=== PATIENT | female | born 1945 | race Caucasian/White ===

== ENCOUNTER 2017-01-26 07:00 | Inpatient (IN) | payer MEDICARE ==
[~2017-01-26] VITALS: Ht 168 cm; Wt 101.0 kg
[2017-01-27 06:14] LABS: HCT 29.8 % (37.0-47.0); MCH 31.4 pg (25.0-31.0); MCHC 33.6 g/dL (32.0-36.0); MCV 93.7 fL (78.0-100.0); MPV 10.9 fL (6.0-9.5); RBC 3.18 M/uL (4.20-5.40); RDW 13.3 % (11.5-14.0); WBC 5.2 K/uL (4.0-10.5)
[2017-01-27 06:44] LABS: CREATININE 0.8 mg/dL (0.5-1.0); MAGNESIUM 1.51 mg/dL (1.40-2.10); POTASSIUM 3.7 mmol/L (3.5-5.1)
[2017-01-28 05:52] LABS: HCT 30.3 % (37.0-47.0); HGB 9.9 g/dl (12.5-16.0); MCH 31.1 pg (25.0-31.0); MCHC 32.7 g/dL (32.0-36.0); MCV 95.3 fL (78.0-100.0); MPV 11.4 fL (6.0-9.5); RBC 3.18 M/uL (4.20-5.40); RDW 13.6 % (11.5-14.0); WBC 4.8 K/uL (4.0-10.5)
[2017-01-28 06:20] LABS: CREATININE 0.8 mg/dL (0.5-1.0); MAGNESIUM 1.63 mg/dL (1.40-2.10); PHOSPHORUS 3.1 mg/dL (2.7-4.5); POTASSIUM 3.8 mmol/L (3.5-5.1)
[2017-01-29 06:16] LABS: HCT 29.7 % (37.0-47.0); HGB 9.6 g/dl (12.5-16.0); MCH 31.4 pg (25.0-31.0); MCHC 32.3 g/dL (32.0-36.0); MCV 97.1 fL (78.0-100.0); MPV 11.4 fL (6.0-9.5); RBC 3.06 M/uL (4.20-5.40); RDW 13.7 % (11.5-14.0)
[2017-01-29 06:47] LABS: CREATININE 0.9 mg/dL (0.5-1.0); MAGNESIUM 1.57 mg/dL (1.40-2.10); PHOSPHORUS 3.1 mg/dL (2.7-4.5); POTASSIUM 3.6 mmol/L (3.5-5.1)
[2017-01-29] MEDS ORDERED: PERCOCET 5/3251 TAB PO (13:44)
[2017-01-29] MEDS ORDERED: SERTRALINE HCL100 MG PO (13:44)
[2017-01-29] MEDS ORDERED: LIPITOR20 MG PO (13:45)
[2017-01-29] MEDS ORDERED: ATENOLOL25 MG PO (13:45)
[2017-01-29] MEDS ORDERED: COSOPT EYE DROP10 ML OU (13:48)
[2017-01-29] MEDS ORDERED: PROTONIX 40MG T40 MG PO (13:48)
[2017-01-29] MEDS ORDERED: SYNTHROID100 MCG PO (13:48)
[2017-01-29] MEDS ORDERED: XARELTO10 MG PO (13:54)
[2017-01-29] MEDS ORDERED: NORVASC10 MG PO (13:55)
[2017-01-29] MEDS ORDERED: ZOFRAN4 MG PO (13:55)
== END 2017-01-29 14:40 | disposition home health service (06) | DRG 470 ==
LOC: FMS 07:00
PROVIDERS: Internal Medicine; ADMIT Legal Medicine
PROC: 8E0YXBZ Computer Assisted Procedure of Lower Extremity (ICD-10-PCS; 2017-01-26)
PROC: 0SRD0J9 Replacement of Left Knee Joint with Synthetic Substitute, Cemented, Open Approach (ICD-10-PCS; principal; 2017-01-26 11:00)
DX: M17.12 Unilateral primary osteoarthritis, left knee (principal); I10 Essential (primary) hypertension; M21.162 Varus deformity, not elsewhere classified, left knee; G47.33 Obstructive sleep apnea (adult) (pediatric); E78.5 Hyperlipidemia, unspecified; R32 Unspecified urinary incontinence; K21.9 Gastro-esophageal reflux disease without esophagitis; E03.9 Hypothyroidism, unspecified; F41.9 Anxiety disorder, unspecified; F32.9 Major depressive disorder, single episode, unspecified; Z90.710 Acquired absence of both cervix and uterus; Z79.01 Long term (current) use of anticoagulants; Z22.322 Carrier or suspected carrier of Methicillin resistant Staphylococcus aureus
CPT/HCPCS: 36415; 73560; 80048; 82550; 83735; 84100; 86850; 86900; 86901; 88305; 94010; 94762; 97110; 97116; 97162; 97166; 97530-GP; 97535; C1713; C1776; J0131; J0697; J1170; J1885; J2270; J2405; J2704; J2795; J3010